=== PATIENT | female | born 1995 | race Caucasian/White ===

== ENCOUNTER 2019-06-22 13:40 | Emergency (ER) | payer OTHER, BC ==
[~2019-06-22] VITALS: Ht 167.6 cm; Wt 59.0 kg
[2019-06-22] MEDS ORDERED: LIDOCAINE 2% 20 ML VIAL. ONE (13:59)
--- NOTE | 2019-06-22 14:23 | RAD ---
3 views right hand 06/22/2019 1:42 PM Indication: Trauma Comparison: None Findings: There is a comminuted fracture at the base of the third proximal phalanx with extension to the articular surface. Palmar angulation of the distal fracture fragment is seen. Displacement of fracture fragments noted. Associated soft tissue edema noted. No other fractures are seen. No radiopaque foreign bodies. IMPRESSION: Comminuted fracture at the base of the third proximal phalanx involving the articular surface. Electronically signed by: Jose A Blevins MD (06/22/2019 2:20 PM) [facility]
[2019-06-22 14:37] VITALS: BP 149/87
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
== END 2019-06-22 14:49 | disposition home or self-care (01) ==
LOC: ER 13:40
DX: S62.612A Displaced fracture of proximal phalanx of right middle finger, initial encounter for closed fracture (principal); V49.49XA Driver injured in collision with other motor vehicles in traffic accident, initial encounter; Y93.I9 Activity, other involving external motion; Y92.488 Other paved roadways as the place of occurrence of the external cause; Y99.8 Other external cause status
CPT/HCPCS: 26725; 26770; 73130; 99284

== ENCOUNTER → 2021-10-07 | Outpatient (CLI) | payer BC ==
--- NOTE | 2021-10-07 14:54 | RAD ---
EXAM: Pelvic sonogram. HISTORY: Pelvic and perineal pain. TECHNIQUE: Sonographic imaging of the pelvis was performed. COMPARISON: None. FINDINGS: The uterus measures 7.2 x 4.5 x 3.0 cm. There is prominent ovarian blood flow. No discrete lesion is seen. There is no pelvic free fluid. The endometrial stripe measures 3 mm in thickness. The ovaries are normal in size and demonstrate normal blood flow. IMPRESSION: 1. Prominent ovarian parenchymal blood flow. No discrete lesion is seen. 2. Thin endometrium. Correlate with the phase the patient's menstrual cycle. Electronically signed by: Brooke Alcala MD (10/07/2021 2:51 PM) [id number]
== END ==
LOC: US 13:47
PROVIDERS: ATTEND Physician Assistant
DX: N85.8 Other specified noninflammatory disorders of uterus (principal)
CPT/HCPCS: 76830; 76856

== ENCOUNTER → 2021-10-09 | Outpatient (CLI) | payer BC ==
--- NOTE | 2021-10-09 17:06 | RAD ---
EXAM: Abdomen, 2 views. HISTORY: Pain. COMPARISON: None. FINDINGS: Frontal upright and supine views of the abdomen are obtained. There is moderate stool withi n the colon and rectum. There are nondistended air-filled loops of bowel within the abdomen. There is no free air. There is no transition point to suggest obstruction. IMPRESSION: Nonobstructive bowel gas pattern. Electronically signed by: Brooke Alcala MD (10/09/2021 5:04 PM) [id number]
== END ==
LOC: RAD 15:44
PROVIDERS: ATTEND Physician Assistant
DX: R10.9 Unspecified abdominal pain (principal)
CPT/HCPCS: 74019